=== PATIENT | male | born 1940 | race Caucasian/White ===

== ENCOUNTER → 2024-02-14 09:50 | Outpatient (REF) | payer OTHER, SELFPAY | LOC: HWRAD 09:50 | PROVIDERS: ATTENDING PHYSICIAN Colon & Rectal Surgery; FAMILY PHYSICIAN Internal Medicine | DX: Z86.010 Personal history of colon polyps (principal) | CPT/HCPCS: 74261 ==

== ENCOUNTER 2024-02-29 14:21 | Emergency (ER) | payer OTHER, SELFPAY ==
[2024-02-29] VITALS (7 sets, daily range): BP systolic 142–170; BP diastolic 45–90; BMI 30.5
[2024-02-29 15:07] LABS: % Basophils 0.8 % (0-2); % Eosinophils 4.7 % (0-6); % Immature Granulocytes 0.4 % (0-0.5); % Lymphocytes 31.6 % (20.5-51.1); % Monocytes 10.2 % (1.7-9.3); % Neutrophils 52.3 % (42.2-75.2); Absolute Basophils 0.1 10^3/uL (0-0.2); Absolute Eosinophils 0.3 10^3/uL (0-0.7); Absolute Lymphocytes 2.3 10^3/uL (1.2-3.4); Absolute Monocytes 0.7 10^3/uL (0.1-0.6); Absolute Neutrophils 3.8 10^3/uL (1.4-6.5); Hematocrit 38.2 % (39.0-52.0); Hemoglobin 12.7 g/dL (13.0-18.0); Mean Corp Hgb Conc. 33.2 g/dL (33.0-37.0); Mean Corpuscular Hgb 31.4 pg (27.0-31.0); Mean Corpuscular Volume 94.6 fL (80.0-94.0); Mean Platelet Volume 10.5 fL (7.4-10.4); Nucleated Red Blood Cells % 0 % (-); Red Blood Cell Count 4.04 10^6/uL (4.70-6.10); Red Cell Dist. Width 13.2 % (11.5-14.5); White Blood Cell Count 7.2 10^3/uL (4.8-10.8)
[2024-02-29 15:26] LABS: ALT (SGPT) 17 U/L (0-50); AST (SGOT) 22 U/L (17-59); Albumin 3.7 g/dl (3.5-5.0); Alkaline Phosphatase 89 U/L (38-126); Blood Urea Nitrogen 35 mg/dl (9-20); Calcium 9.2 mg/dl (8.4-10.2); Carbon Dioxide 20 mmol/L (22-30); Chloride 111 mmol/L (98-107); Estimated Creatinine Clearance 50 ml/min; Glucose 176 mg/dl (70-99); Potassium 4.4 mmol/L (3.5-5.1); Sodium 138 mmol/L (135-145); Total Bilirubin 0.4 mg/dl (0.2-1.3); Total Protein 6.5 g/dl (6.3-8.2); eGFR 49.56
[2024-02-29 15:30] LABS: Troponin I < 0.012 ng/ml
[2024-02-29 15:34] LABS: Platelet Count 146 10^3/uL (130-400)
[2024-02-29] MEDS: TYLENOL 650 MG PO (16:38)
[2024-02-29 17:03] LABS: Magnesium 1.8 mg/dl (1.6-2.3)
--- NOTE | 2024-02-29 17:14 | ED.GENMED ---
History of Present Illness
General
Chief Complaint: Heart Rate Problem
Source: patient
Exam Limitations: none
Time Seen by Provider: 02/29/24 15:22
Nursing documentation reviewed up to this point in time: agreed with
Travel History
Have you had any contact with someone who has COVID-19?: No
Do you have any symptoms of coronavirus? Fever > 100 degrees, chills, cough, shortness of breath, sore throat, loss of taste or smell, muscle aches, or headache?: No
History of Present Illness
History of Present Illness:
Patient presents to ED secondary to persistent left upper back pain, after losing balance and falling onto wooden beam on his deck 10 days ago. Patient was evaluated urgent care center this afternoon secondary to persistent pain. During initial
evaluation, patient was found to be hypertensive and bradycardic with an abnormal EKG. As such, patient was referred to ED for further evaluation and treatment. Patient states that bradycardia is something that he is working with his supervisor assembly
and there has been discussion about medication adjustment. Patient denies any symptoms associated with bradycardia, such as dizziness/weakness/fatigue/shortness of breath/chest pain.
Past History
Past History
ED Past Medical History: Arrthythmia, CAD, HTN, NIDDM and Other (Aortic valve replacement secondary a bicuspid valve)
ED Past Surgical History: None
Social History
Tobacco: Non-smoker
Personal:
Living: with family
Review of Systems
Review of Systems
Allergies reviewed?: Yes
All Other Systems: ROS reviewed and negative except as documented in HPI and ROS
Constitutional: Reports no symptoms
EENT: Reports no symptoms
Respiratory: Reports no symptoms; Denies trouble breathing
Cardiac: Reports no symptoms; Denies chest pain
ABD/GI: Reports no symptoms; Denies abdominal pain
Musculoskeletal: Reports other (shoulder/back pain)
Skin: Reports no symptoms
Neurological: Reports no symptoms; Denies dizzy or weakness
Phy Exam
Physical Exam
Physical Exam:
Physical Exam
General: no apparent distress, not acutely ill. afebrile
Head: nc/at. eomi
Neck: supple. no meningeal signs.
Heart: s1/s2 regular rate and rhythm, no murmur. equal radial pulses.
Lungs: no acute respiratory distress. clear bilaterally
Abdomen: normal bowel sounds. not tender.
Back: no midline tenderness. mild tenderness to palpation over left upper back, without swelling/erythema/ecchymosis.
Neuro: alert and oriented. no focal neurological deficits
Skin: no rash
Psychiatric: well kept. interactive and cooperative
Extremities: no edema. no calf tenderness.
Course
Orders/Labs/Results
Orders:
Orders
02/29/24 14:32
Electrocardiogram (*1) Urgent
Reason for Study: Bradycardia / Tachycardia
EKG- Treatment ONCE
02/29/24 14:48
Complete Blood Count/With Diff Urgent
Comprehensive Metabolic Panel Urgent
Magnesium Urgent
Troponin I Urgent
02/29/24 16:32
Add On- LAB Urgent
Tests Added?: magnesium
CR Chest - 2 Views Urgent
Comment:
Reason For Exam: left upper back pain
02/29/24 16:33
Acetaminophen [Tylenol] 650 mg PO NOW STA
Abnormal Lab Results
02/29/24
14:48
RBC 4.04 L 10^6/uL
(4.70-6.10)
Hgb 12.7 L g/dL
(13.0-18.0)
Hct 38.2 L %
(39.0-52.0)
MCV 94.6 H fL
(80.0-94.0)
MCH 31.4 H pg
(27.0-31.0)
MPV 10.5 H fL
(7.4-10.4)
Absolute Monos (auto) 0.7 H 10^3/uL
(0.1-0.6)
Monocytes % 10.2 H %
(1.7-9.3)
Chloride 111 H mmol/L
(98-107)
Carbon Dioxide 20 L mmol/L
(22-30)
BUN 35 H mg/dl
(9-20)
Creatinine 1.4 H mg/dL
(0.7-1.3)
Glucose 176 H mg/dl
(70-99)
02/29/24 14:48
02/29/24 14:48
Vital Signs
Initial and Last Documented VS:
Initial Vital Signs
Temp Pulse Resp BP Pulse Ox
98.0 F 35 20 161/55 97
02/29/24 14:26 02/29/24 14:26 02/29/24 14:26 02/29/24 14:26 02/29/24 14:26
Last Documented Vital Signs
Temp Pulse Resp BP Pulse Ox
98.0 F 53 15 143/90 97
02/29/24 14:26 02/29/24 17:16 02/29/24 17:16 02/29/24 17:16 02/29/24 17:16
MDM/Problems Addressed
MDM/Problems Addressed:
Patient with intermittent episodes of bradycardia, along with bigeminy noted on the monitor. However, patient remains asymptomatic from that standpoint. Patient has known to be bradycardic, and has been in discussion with his supervisor assembly
regarding potential medication adjustments in the upcoming days. As such, do not feel that an acute treatment is necessary at this point in time. Patient's upper back pain, likely secondary to contusion versus strain. However, patient is
asymptomatic and nontoxic-appearing. Patient will be advised to rest, apply warm compress Ustell as needed for symptomatic relief. Patient otherwise is hemodynamically stable and nontoxic-appearing, at time of discharge, to the care of his .
*Critical Care Note
Total Time (30-74mins, 75-104mins- exclusive of procedures): Not Applicable
ED Attending Note
-
Portions of this chart may have been created with voice recognition software.� Occasional wrong word or��sound alike� substitutions may have occurred due to the inherent limitations of voice recognition software.
Discharge Plan
Departure
Patient Disposition: Home (Routine Discharge)
Date of Disposition: 02/29/24
Time of Disposition: 17:15
Patient with high blood pressure during this ER visit?: Yes
Condition: Good
Discharge Problem:
Musculoskeletal pain, Bradycardia
Instructions: Bradycardia (DC), Musculoskeletal Pain
Prescriptions:
No Action
enalapril maleate [Vasotec] 20 MG tablet
20 mg PO BID
Jardiance 10 MG tablet
10 mg PO DAILY
Xarelto 20 MG tablet
20 mg PO DAILY
metformin 500 mg Tablet
500 mg PO BID@0800,1700
glimepiride 4 mg Tablet
4 mg PO DAILY
metoprolol succinate 100 MG tablet extended release 24 hr
100 mg PO DAILY Qty: 90 1RF
Rx Instructions:
Please note lower daily dose
Referrals:
Shaq Elias MD [Family Provider] -
Activity Restrictions/Additional Instructions:
As discussed, please follow-up with your primary care physician, as well as your supervisor assembly, for further evaluation and treatment.
Interventions
Interventions:
*Risk Screen - Suicide Last Done: 02/29/24 14:38
*General Assessment Last Done: 02/29/24 14:38
*Neglect/Abuse Screening Last Done: 02/29/24 14:38
ED- Fall Risk Assessment Last Done: 02/29/24 16:10
*ED COVID-19 Vaccine History Last Done: 02/29/24 17:25
*Nursing Disposition Last Done: 02/29/24 17:25
ED- Cardiac Assessment Last Done: 02/29/24 16:10
ED- Pulmonary Assessment Last Done: 02/29/24 16:10
Discharge Date and Time
Discharge Date/Time: 02/29/24 17:26
Print Language: MALAGASY
== END 2024-02-29 17:26 | disposition home or self-care (01) ==
LOC: EMR 14:21
PROVIDERS: Emergency Medicine; EMERGENCY PHYSICIAN Emergency Medicine; FAMILY PHYSICIAN Internal Medicine
DX: M54.6 Pain in thoracic spine (principal); R00.1 Bradycardia, unspecified; I10 Essential (primary) hypertension; W01.0XXA Fall on same level from slipping, tripping and stumbling without subsequent striking against object, initial encounter
CPT/HCPCS: 99285; 71046; 80053; 83735; 84484; 85025; 93005

== ENCOUNTER 2024-08-04 06:18 | Day surgery (SDC) | payer OTHER, SELFPAY ==
[2024-07-27 08:40] VITALS: BMI 30.4
[2024-07-27 10:27] LABS: Hematocrit 37.4 % (39.0-52.0); Mean Corp Hgb Conc. 32.1 g/dL (33.0-37.0); Mean Corpuscular Hgb 30.1 pg (27.0-31.0); Mean Corpuscular Volume 93.7 fL (80.0-94.0); Mean Platelet Volume 9.8 fL (7.4-10.4); Platelet Count 250 10^3/uL (130-400); Red Blood Cell Count 3.99 10^6/uL (4.70-6.10); Red Cell Dist. Width 13.3 % (11.5-14.5); White Blood Cell Count 6.6 10^3/uL (4.8-10.8)
[2024-07-27 11:00] LABS: Blood Urea Nitrogen 36 mg/dl (9-20); Calcium 9.4 mg/dl (8.4-10.2); Carbon Dioxide 22 mmol/L (22-30); Chloride 108 mmol/L (98-107); Estimated Creatinine Clearance 48 ml/min; Glucose 109 mg/dl (70-99); Potassium 5.2 mmol/L (3.5-5.1); Sodium 143 mmol/L (135-145); eGFR 49.56
[2024-08-04] VITALS (9 sets, daily range): BP systolic 125–145; BP diastolic 33–67; BMI 30.4
--- NOTE | 2024-08-04 06:36 | HP.FOC2 ---
Focused History & Physical
Chief Complaint
HPI:
Chief Complaint: Left inguinal hernia
HPI / Indication for Planned Procedure: Patient is an 84-year-old male with longstanding history of a left inguinal hernia that has been following expectantly. He has an awareness of the hernia being present but no significant pain or discomfort.
After recent outpatient surgical evaluation and discussions regarding management options patient wished to pursue operative correction. He presents today for open left inguinal herniorrhaphy with mesh.
Relevant Past Medical History: Other (CAD with stent, hypertension, diabetes mellitus, gout, arthritis, A-fib, pancreatic cyst, history of colon polyps, insomnia)
Relevant Social History: Negative
Relevant Family History: Negative
Relevant Past Surgical History: Positive for (Bioprosthetic AVR, cardiac stent, cardiac ablation)
Review of Systems
Review of Pertinent Systems: All Systems Negative
Medication
See Medication form for detailed medications: Yes
Medication List (including Herbals & OTC):
enalapril maleate 20 mg tablet (Vasotec) 20 mg PO BID Heart disease/condition 04/10/14
empagliflozin 10 mg tablet (Jardiance) 10 mg PO DAILY Diabetes 06/27/18
glimepiride 4 mg tablet 4 mg PO DAILY Diabetes 01/28/23
metformin 500 mg tablet 500 mg PO BID@0800,1700 Diabetes 01/28/23
aspirin 81 mg capsule 81 mg PO DAILY 07/28/24
clopidogrel 75 mg tablet (Plavix) 75 mg PO DAILY 07/28/24
metoprolol succinate 100 mg tablet,extended release 24 hr 25 mg PO DAILY Heart disease/condition 07/28/24
furosemide 20 mg tablet 20 mg PO PRN PRN Left foot swelling 08/04/24
Medications Reviewed: Yes
Allergies and Reactions
Patient has Allergies: No
Noted Allergies and Reactions:
Allergy/AdvReac Type Severity Reaction Status Date / Time
No Known Allergies Allergy Verified 08/04/24 06:14
Pertinent Physical Exam
All Other Systems: Negative
Head/Neck: Normal
Lungs: Normal
Heart: Normal
Abdomen: Other (Left inguinal hernia)
Extremities: Normal
Neurological: Normal
Diagnosis / Assessment
84-year-old male presenting for scheduled operative correction left inguinal hernia
Plan / Procedure
Open repair left inguinal hernia with mesh
Anesthesia/Sedation to be done by Anesthesia Provider: Yes
[2024-08-04 06:38] LABS: Glucose - Point of Care 143 mg/dl (70-99)
--- NOTE | 2024-08-04 06:39 | W.SUR.PREOP ---
Pre-Operative Surgical Note
-
I have examined this patient prior to the performance of the scheduled procedure.
The patient's condition is unchanged from the time of the current History and
Physical and the patient is able to undergo the scheduled procedure.
[2024-08-04] MEDS: TYLENOL 1000 MG PO (06:42)
[2024-08-04] MEDS: NORMOSOL-R/PLASMALYTE-A 1000 IV (06:43)
[2024-08-04 08:49] LABS: Glucose - Point of Care 164 mg/dl (70-99)
--- NOTE | 2024-08-04 09:27 | W.IMMPOSTOP ---
Addendum entered and electronically signed by Roshan Bueno MD 08/04/24 09:41:
The assistance of Ashely Acevedo PA-c was required due to the complexity of the procedure. During the procedure Ashely Acevedo PA-c assisted with retraction and closure of the wound.
#[id number]
Original Note:
Surgical Immed Post Op Note
-
Primary Surgeon: Ximena
Assisting Surgeon: Ashely Acevedo PA-c
Pre-op Diagnosis: LIH
Post-op Diagnosis: recurrent LIH - indirect
Procedure Performed: open repair recurrent LIH with mesh
Anesthesia Type: General LMA
Specimen / Cultures: none
Estimated Blood Loss: 8mL
Complications: none immediate
Operative Findings: large left indirect inguinal hernia. direct normal. scarring and skin scar highly suggestive of prior primary inguinal hernia repair in the past. Lyndon tension free mesh repair with regular wt bard polypropylene mesh
7.5cm x 15cm.
update post op via phone call
[2024-08-04 09:35] LABS: Glucose - Point of Care 170 mg/dl (70-99)
--- NOTE | 2024-08-04 10:00 | PTCARENOTE ---
Addendum note.... Patient H/O AFIB noted to be NSR with PAC's on arrival to PACU. Occasional PVC'S then noted and intermittent bigeminy. Bigeminy becoming more frequent then returning to NSR with PVC. VSS, patient without any C/O. Dr Woods
aware, no further orders at this time.
== END 2024-08-04 11:45 | disposition home or self-care (01) ==
LOC: SDS 06:18
PROVIDERS: ATTENDING PHYSICIAN Surgery; FAMILY PHYSICIAN Internal Medicine; OTHER PHYSICIAN Internal Medicine Cardiovascular Disease
DX: K40.90 Unilateral inguinal hernia, without obstruction or gangrene, not specified as recurrent (principal)
CPT/HCPCS: 49505; 36415; 80048; 82962; 85027; C1781

== ENCOUNTER 2025-09-20 15:38 | Emergency (ER) | payer OTHER, SELFPAY ==
[2025-09-20 15:48] VITALS: BP 144/73
--- NOTE | 2025-09-20 16:27 | ED.GENMED ---
History of Present Illness
General
Chief Complaint: Fall
Source: patient
Time Seen by Provider: 09/20/25 16:05
History of Present Illness
History of Present Illness:
85-year-old male with past medical history of atrial fibrillation, hypertension, valvular disease, abt-[id number] diabetes presenting to the emergency department for evaluation from urgent care after a reported fall last night while taking
out the garbage cans stating he just excellently stumbled over his own feet causing him to fall onto the left side of his anterolateral chest and striking the left part of his head on the ground, patient denies LOC to me however at the urgent care
there was a report of a possible loss of consciousness. At urgent care he was diagnosed with a left seventh rib fracture but no pneumothorax. Patient denies any shortness of breath. He states no headache, visual disturbances, extremity related
injuries outside of some minor scrapes and otherwise no other concerns.
Past History
Past History
ED Past Medical History: Arrthythmia, CAD, HTN, NIDDM and Other (Aortic valve replacement secondary a bicuspid valve)
ED Past Surgical History: Cardiac
Social History
Tobacco: Non-smoker
Alcohol: None
Drug: None
Personal:
Living: with family
Review of Systems
Review of Systems
All Other Systems: ROS reviewed and negative except as documented in HPI and ROS
Phy Exam
Physical Exam
Physical Exam:
GENERAL: Alert , in no apparent distress
HEAD: Ecchymosis periorbitally with minor abrasion just above the left eyebrow but no active bleeding
EYE: conjunctiva clear, no subconjunctival hemorrhage, pupils 4 mm bilateral, EOMI
NECK: Supple, no midline tenderness
ENT: o/p clr, mmm.
CARDIAC: Regular rate and rhythm
LUNGS: Clear breath sounds bilaterally, no acute respiratory distress, no wheezes/rales/rhonchi, lidocaine patch left anterolateral chest wall below the breast
NEUROLOGICAL: Alert and oriented
SKIN: Warm and dry, skin intact.
MUSCULOSKELETAL: well perfused.
PSYCH: Normal and appropriate interaction.
Scores
Heart Failure Risk
Heart Failure Risk Score: Not Applicable
Heart Score for Chest Pain Patients
STEMI patient?: Not applicable
Withdrawal Assessment of Alcohol
Withdrawal Assessment Completed?: Not applicable
Course
Orders/Labs/Results
Orders:
Orders
09/20/25 16:09
CT Cervical Spine W/o Iv Contr Urgent
Comment:
Reason For Exam: fall, reported LOC, on thinners
CT Head W/o Iv Contrast Urgent
Comment:
Reason For Exam: fall, reported LOC, on thinners
Vital Signs
Initial and Last Documented VS:
Initial Vital Signs
Temp Pulse Resp BP Pulse Ox
98.3 F 75 16 144/73 98
09/20/25 15:48 09/20/25 15:48 09/20/25 15:48 09/20/25 15:48 09/20/25 15:48
Last Documented Vital Signs
Temp Pulse Resp BP Pulse Ox
98.3 F 84 18 154/78 97
09/20/25 15:48 09/20/25 19:30 09/20/25 19:30 09/20/25 19:30 09/20/25 19:30
MDM/Problems Addressed
Differential Diagnosis Includes:
Contusion
Concussion
ICH
Orbital Fracture
Rib Fracture
PTX
MDM/Problems Addressed:
85-year-old male presenting to the ER for evaluation after he was seen at urgent care following a fall last night, diagnosed with a left seventh rib fracture but with the reports of possible loss of consciousness as well as the obvious head injury
on physical exam CT of the head and cervical spine ordered. Patient declining anything for pain. Disposition pending CT results.
*Radiology
Radiology exam reviewed: radiology read reviewed
*Pulse Oximetry
SaO2: 98
Oxygen Mode of Delivery: Room air
Patient hypoxic: no
*Critical Care Note
Total Time (30-74mins, 75-104mins- exclusive of procedures): Not Applicable
Data Reviewed
Review of Other/Old Records Reveals: Radiology Studies (Radiology review shows a left 6th and 7th rib fracture from his x-ray done today)
Source: patient and records
Patient Management
Escalation/DeEscalation of care consider admission/obs:
CT negative for intracranial pathologies. Stable for d/c home. Aware of return precautions.
ED Attending Note
-
Portions of this chart may have been created with voice recognition software.� Occasional wrong word or��sound alike� substitutions may have occurred due to the inherent limitations of voice recognition software.
Discharge Plan
Departure
Patient Disposition: Home (Routine Discharge)
Date of Disposition: 09/20/25
Time of Disposition: 18:09
Patient with high blood pressure during this ER visit?: Yes
Discharge Problem:
Accidental fall, Contusion of scalp, Left rib fracture
Instructions: Preventing falls in adults
Prescriptions:
No Action
enalapril maleate [Vasotec] 20 MG tablet
20 mg PO BID
Jardiance 10 MG tablet
10 mg PO DAILY
metformin 500 mg Tablet
500 mg PO BID@0800,1700
glimepiride 4 mg Tablet
4 mg PO DAILY
clopidogrel [Plavix] 75 mg Tablet
75 mg PO DAILY
aspirin 81 mg Capsule
81 mg PO DAILY
metoprolol succinate 100 MG tablet extended release 24 hr
25 mg PO DAILY
Rx Instructions:
Please note lower daily dose
furosemide 20 mg Tablet
20 mg PO PRN PRN (Reason: Left foot swelling)
acetaminophen [Tylenol Extra Strength] 500 mg tablet
1,000 mg PO Q6HPRN PRN (Reason: mild pain) Qty: 1 0RF
tramadol 50 mg tablet
25 - 50 mg PO Q6HPRN PRN (Reason: severe pain/breakthrough pain) Qty: 10 0RF
polyethylene glycol 3350 [Miralax] 17 gram/dose powder
4 g PO DAILY PRN (Reason: Constipation) Qty: 119 0RF
Rx Instructions:
start a laxative such as MIRALAX on day 2 after surgery if no bowel movement yet as long as no nausea/vomiting and passing gas
Interventions
Interventions:
*Risk Screen - Suicide Last Done: 09/20/25 15:48
*General Assessment Last Done: 09/20/25 16:00
*Neglect/Abuse Screening Last Done: 09/20/25 15:48
*ED- Fall Risk Assessment Last Done: 09/20/25 16:00
*Nursing Disposition Last Done: 09/20/25 19:30
ED-Musculoskeletal Assessment Last Done: 09/20/25 16:00
ED- Neurological Assessment Last Done: 09/20/25 16:00
ED-Skin Assessment Last Done: 09/20/25 16:00
Discharge Date and Time
Discharge Date/Time: 09/20/25 18:35
Print Language: MONGOLIAN
[2025-09-20 19:30] VITALS: BP 154/78
== END 2025-09-20 18:35 | disposition home or self-care (01) ==
LOC: EMR 15:38
PROVIDERS: EMERGENCY PHYSICIAN Student in an Organized Health Care Education/Training Program; FAMILY PHYSICIAN Internal Medicine
DX: S00.03XA Contusion of scalp, initial encounter (principal); S22.42XA Multiple fractures of ribs, left side, initial encounter for closed fracture; W01.198A Fall on same level from slipping, tripping and stumbling with subsequent striking against other object, initial encounter; Y93.01 Activity, walking, marching and hiking; Y92.008 Other place in unspecified non-institutional (private) residence as the place of occurrence of the external cause; I10 Essential (primary) hypertension; E11.9 Type 2 diabetes mellitus without complications; I25.10 Atherosclerotic heart disease of native coronary artery without angina pectoris; I48.91 Unspecified atrial fibrillation; Z79.84 Long term (current) use of oral hypoglycemic drugs; Z79.02 Long term (current) use of antithrombotics/antiplatelets; Z79.82 Long term (current) use of aspirin; Z95.2 Presence of prosthetic heart valve
CPT/HCPCS: 99284; 70450; 72125

== ENCOUNTER → 2025-10-29 14:58 | Outpatient (REF) | payer OTHER, SELFPAY | LOC: RCS 14:58 | PROVIDERS: ATTENDING PHYSICIAN Internal Medicine Cardiovascular Disease; FAMILY PHYSICIAN Internal Medicine | DX: Z95.3 Presence of xenogenic heart valve (principal) | CPT/HCPCS: 93306; Q9950 ==